=== PATIENT | female | born 1930 | race Caucasian/White ===

== ENCOUNTER 2016-10-06 07:48 | Day surgery (SDC) | payer OTHER ==
[~2016-10-06] VITALS: Ht 157.5 cm; Wt 83.6 kg
[2016-10-06 08:09] VITALS: BP 154/80; PULSE 123; RESP 20; TEMP 98; O2SAT 94
[2016-10-06] MEDS ORDERED: CHOL1TAB42 PO (08:13)
[2016-10-06] MEDS ORDERED: LOVA40TA PO (08:13)
[2016-10-06] MEDS ORDERED: ASPI81CH7 CHEW (08:13)
[2016-10-06] MEDS ORDERED: B-122000 PO (08:13)
[2016-10-06] MEDS ORDERED: FERR325C PO (08:13)
[2016-10-06] MEDS ORDERED: FURO40TA PO (08:13)
[2016-10-06] MEDS ORDERED: OMEG12007 PO (08:13)
[2016-10-06] MEDS ORDERED: LEVO25TA4 PO (08:13)
[2016-10-06 08:29] LABS: AUTOMATED NEUTROPHIL # 2.9 TH/MM3 (1.8-7.7); BASOPHIL # 0.1 TH/MM3 (0-0.2); BASOPHIL % 0.9 % (0.0-2.0); EOSINOPHIL # 0.2 TH/MM3 (0-0.4); EOSINOPHIL % 2.6 % (0.0-4.0); HEMATOCRIT 29.9 % (35.0-46.0); HEMO FLAGS DIFF FINAL; LYMPH % 40.5 % (9.0-44.0); LYMPHOCYTE # 2.7 TH/MM3 (1.0-4.8); MEAN CELL VOLUME 102.6 FL (80.0-100.0); MEAN CORPUSCULAR HEMOGLOBIN 35.6 PG (27.0-34.0); MEAN CORPUSCULAR HGB CONC 34.7 % (32.0-36.0); MONO % 11.3 % (0.0-8.0); NEUT % 44.7 % (16.0-70.0); PLATELET COUNT 280 TH/MM3 (150-450); RED BLOOD COUNT 2.91 MIL/MM3 (4.00-5.30); RED CELL DISTRIBUTION WIDTH 14.6 % (11.6-17.2); WHITE BLOOD COUNT 6.6 TH/MM3 (4.0-11.0)
[2016-10-06] MEDS ORDERED: SODIUM CHLOR 0.9% 1000 ML IV SCH (09:15)
[2016-10-06] MEDS ORDERED: fentaNYL CITRATE 250 MCG/5 ML AMP ONE (09:43)
[2016-10-06] MEDS ORDERED: MIDAZOLAM HCL 5 MG/5 ML VIAL ONE (09:43)
[2016-10-06] MEDS ORDERED: LIDOCAINE HCL 1% 20 ML VIAL ONE (09:45)
--- NOTE | 2016-10-06 10:36 | PD.RAD ---
Post Procedure Progress Note Pre Procedure Diagnosis: (1) Monoclonal gammopathy Post Procedure Diagnosis: (1) Monoclonal gammopathy Procedure Date: Oct 06, 2016 Supervising Radiologist: Manpreet Plata Anesthesia: Local, Conscious Sedation Plan of Activity Patient to Unit: ROPU Patient Condition: Fair Additional Comments: Pt post bone marrow biopsy Pt tolerated procedure well. Full dictated report to follow See PACS Report for procedural detail/treatment Manpreet Plata MD Oct 06, 2016 10:36
[2016-10-06 10:50] VITALS: BP 123/71; PULSE 103; RESP 18; TEMP 97.2; O2SAT 94
[2016-10-06 11:05] VITALS: BP 117/56; PULSE 102; RESP 18; O2SAT 96
[2016-10-06 11:35] VITALS: BP 100/53; PULSE 95; RESP 18; O2SAT 97
--- NOTE | 2016-10-06 11:41 | RADRPT ---
EXAM DATE/TIME: 10/06/2016 10:07 [facility] COMPARISON: No previous studies available for comparison. INDICATIONS : Monoclonal gammopathy SEDATION TIME: 15 minutes BIOPSY SITE: Left ilium MEDICATION(S): 1.) 2 mg midazolam (Versed) IV 2.) 100 mcg fentanyl (Sublimaze) IV DEVICE(S): 1.) 12 gauge On-Control needle MEDICAL HISTORY : Hypertension. Anemia SURGICAL HISTORY : Appendectomy. ENCOUNTER: Initial ACUITY: 1 day PAIN SCORE: 0/10 LOCATION: A total of one core specimen(s) were obtained and sent to the laboratory for pathologic evaluation. PROCEDURE: 1. CT guided bone marrow biopsy. 2. Conscious sedation with continuous EKG and oximetry monitoring. 3. EKG and oximetry remained stable throughout the procedure. Prior to the procedure informed consent was obtained. Any appropriate prior imaging studies were rev iewed. Using automated exposure control and adjustment of the mA and/or kV according to patient size , radiation dose was kept as low as reasonably achievable to obtain optimal diagnostic quality images . The site was prepped in a sterile fashion. Full sterile technique was used, including cap, mask, [place] ri[place] gloves and gown and a large sterile sheet. Hand hygiene and 2% chlorhexidine and/or betadine/al cohol prep was utilized per protocol for cutaneous antisepsis. The skin and subcutaneous tissues wer e infiltrated with local anesthetic solution. With CT guidance the previously identified target was localized. Biopsy was performed using the presc ribed needle as above. Following biopsy marrow aspiration was performed with repeat puncture. Adequa te hemostasis was obtained with compression at the puncture site. Follow-up CT scan reveals no hemorrhage. Conscious sedation was performed with the prescribed dosages and duration as above in the presence of an independent trained radiology nurse to assist in the monitoring of the patient. EKG and oximetry remained stable throughout the procedure. The patient tolerated the procedure well and there were no complications. The patient was sent to Radiology Outpatient Unit in stable condition. CONCLUSION: 1. Uncomplicated CT guided bone marrow aspirate. 2. Uncomplicated CT guided bone marrow biopsy. Manpreet Plata MD on October 06, 2016 at 11:38 Board Certified Radiologist. This report was verified electronically.
[2016-10-06 12:05] VITALS: BP 104/45; PULSE 91; RESP 18; O2SAT 91
[2016-10-06 12:16] LABS: BONE MARROW PROCESSING COMPLETE; IRON STAIN DONE; JENNER GIEMSA STAIN DONE
[2016-10-06 12:35] VITALS: BP 104/57; PULSE 86; RESP 16; O2SAT 93
== END 2016-10-06 13:35 | disposition home or self-care (01) ==
LOC: HRAD 07:48 → HRIP 07:57 → HRAD 13:35
PROVIDERS: ATTEND Internal Medicine
DX: D47.2 Monoclonal gammopathy (principal); I10 Essential (primary) hypertension; D64.9 Anemia, unspecified
CPT/HCPCS: 38220; 38221; 77012; 85025; 85060; 85097; 88184; 88185; 88237; 88264; 88280; 88305; 88311; 88313; 99152; C1830; G0364; J2250; J3010; J7030

== ENCOUNTER 2016-11-11 15:53 | Emergency (ER) | payer OTHER ==
[~2016-11-11 15:53] MED LIST: ASPI81CH7 CHEW; B-122000 PO; CHOL1TAB42 PO; FERR325C PO; FURO40TA PO; LEVO25TA4 PO; LOVA40TA PO; OMEG12007 PO
[2016-11-11 15:56] VITALS: BP 160/72; PULSE 118; RESP 24; TEMP 100.2; O2SAT 94
--- NOTE | 2016-11-11 16:54 | RADRPT ---
EXAM DATE/TIME: 11/11/2016 16:38 [facility] COMPARISON: No previous studies available for comparison. INDICATIONS : Fever. MEDICAL HISTORY : Hypertension. Anemia. SURGICAL HISTORY : Appendectomy. ENCOUNTER: Initial ACUITY: 1 day PAIN SCORE: Non-responsive. LOCATION: Bilateral chest FINDINGS: A single portable frontal view of the chest shows a lingular opacity which obscures the cardiac apex. Right lung is clear. No effusions. Heart is normal in size. Mild scoliotic curvature. CONCLUSION: Lingular atelectasis versus infiltrate. Amanuel Garcia Jr., MD on November 11, 2016 at 16:51 Board Certified Radiologist. This report was verified electronically.
[2016-11-11] MEDS ORDERED: DEXA4TAB PO (17:10)
[2016-11-11] MEDS ORDERED: ACYC400T PO (17:10)
[2016-11-11 17:11] VITALS: O2SAT 95
[2016-11-11] MEDS ORDERED: VANCOMYCIN INJ 1,000 MG in SODIUM CHLOR 0.9% 250 ML INJ 250 ML IV ONE (17:30)
[2016-11-11] MEDS ORDERED: cefTRIAXone INJ 2,000 MG in SODIUM CHLORIDE 0.9% INJ 100 ML IV ONE (17:30)
[2016-11-11] MEDS ORDERED: PROCHLORPERAZINE INJ 10 MG/2 ML VIAL IV PUSH ONE (17:30)
[2016-11-11] MEDS ORDERED: SODIUM CHLOR 0.9% 1000 ML INJ 1,000 ML IV ONE (17:30)
[2016-11-11] MEDS ORDERED: diphenhydrAMINE HCL 50 MG/ML VIAL IV PUSH ONE (17:30)
[2016-11-11 17:32] LABS: AUTOMATED NEUTROPHIL # 3.9 TH/MM3 (1.8-7.7); BASOPHIL % 0.4 % (0.0-2.0); EOSINOPHIL # 0.1 TH/MM3 (0-0.4); HEMATOCRIT 28.2 % (35.0-46.0); LYMPH % 14.4 % (9.0-44.0); LYMPHOCYTE # 0.7 TH/MM3 (1.0-4.8); MEAN CELL VOLUME 104.8 FL (80.0-100.0); MEAN CORPUSCULAR HEMOGLOBIN 36.6 PG (27.0-34.0); MEAN CORPUSCULAR HGB CONC 34.9 % (32.0-36.0); NEUT % 80.2 % (16.0-70.0); PLATELET COUNT 212 TH/MM3 (150-450); RED BLOOD COUNT 2.69 MIL/MM3 (4.00-5.30); RED CELL DISTRIBUTION WIDTH 14.9 % (11.6-17.2); WHITE BLOOD COUNT 4.8 TH/MM3 (4.0-11.0)
[2016-11-11 17:36] LABS: HEMO FLAGS AUTO DIFF
--- NOTE | 2016-11-11 17:41 | PD ---
Data Data Last Documented VS Vital Signs Date Time Temp Pulse Resp B/P Pulse Ox O2 Delivery O2 Flow Rate FiO2 11/11/16 19:19 99.5 99 18 146/66 97 11/11/16 15:56 Room Air Orders Lactic Acid (11/11/16 16:15) Complete Blood Count With Diff (11/11/16 16:15) Urinalysis - C+S If Indicated (11/11/16 16:15) Chest, Single Ap (11/11/16 ) Blood Culture (11/11/16 16:20) Comprehensive Metabolic Panel (11/11/16 17:06) Magnesium (Mg) (11/11/16 17:06) Iv Access Insert/Monitor (11/11/16 17:07) Oximetry (11/11/16 17:07) Blood Glucose (11/11/16 17:07) Ecg Monitoring (11/11/16 17:07) Diphenhydramine Inj (Benadryl Inj) (11/11/16 17:30) Prochlorperazine Inj (Compazine Inj) (11/11/16 17:30) Ceftriaxone Inj (Rocephin Inj) (11/11/16 17:30) Vancomycin Inj (Vancomycin Inj) (11/11/16 17:30) Sodium Chlor 0.9% 1000 Ml Inj (Ns 1000 M (11/11/16 17:30) Lipase (11/11/16 18:21) Gamma Gt (Ggt) (11/11/16 18:24) Acetaminophen (Tylenol) (11/11/16 19:30) Cath For Specimen (11/11/16 19:46) Magnesium Oxide (Mag-Ox) (11/11/16 20:45) Labs Laboratory Tests Test 11/11/16 11/11/16 11/11/16 16:15 16:50 19:55 Gamma Glutamyl Transpeptidase 29 U/L White Blood Count 4.8 TH/MM3 Red Blood Count 2.69 MIL/MM3 Hemoglobin 9.9 GM/DL Hematocrit 28.2 % Mean Corpuscular Volume 104.8 FL Mean Corpuscular Hemoglobin 36.6 PG Mean Corpuscular Hemoglobin 34.9 % Concent Red Cell Distribution Width 14.9 % Platelet Count 212 TH/MM3 Mean Platelet Volume 7.6 FL Neutrophils (%) (Auto) 80.2 % Lymphocytes (%) (Auto) 14.4 % Monocytes (%) (Auto) 2.0 % Eosinophils (%) (Auto) 3.0 % Basophils (%) (Auto) 0.4 % Neutrophils # (Auto) 3.9 TH/MM3 Lymphocytes # (Auto) 0.7 TH/MM3 Monocytes # (Auto) 0.1 TH/MM3 Eosinophils # (Auto) 0.1 TH/MM3 Basophils # (Auto) 0.0 TH/MM3 CBC Comment AUTO DIFF Differential Total Cells 100 Counted Neutrophils % (Manual) 60 % Band Neutrophils % 12 % Lymphocytes % 13 % Eosinophils % 6 % Basophils % 1 % Neutrophils # (Manual) 3.8 TH/MM3 Metamyelocytes 4 % Myelocytes 3 % Promyelocytes 1 % Nucleated Red Blood Cells 1 /100 WBC Differential Comment FINAL DIFF MANUAL Platelet Estimate NORMAL Platelet Morphology Comment NORMAL Red Cell Morphology Comment NORMAL Sodium Level 130 MEQ/L Potassium Level 3.5 MEQ/L Chloride Level 99 MEQ/L Carbon Dioxide Level 24.9 MEQ/L Anion Gap 6 MEQ/L Blood Urea Nitrogen 21 MG/DL Creatinine 0.96 MG/DL Estimat Glomerular Filtration 55 ML/MIN Rate Random Glucose 100 MG/DL Lactic Acid Level 0.9 mmol/L Calcium Level 9.0 MG/DL Magnesium Level 1.4 MG/DL Total Bilirubin 0.2 MG/DL Aspartate Amino Transf 1173 U/L (AST/SGOT) Alanine Aminotransferase 46 U/L (ALT/SGPT) Alkaline Phosphatase 43 U/L Total Protein 10.5 GM/DL Albumin 2.5 GM/DL Lipase 117 U/L Urine Color YELLOW Urine Turbidity HAZY Urine pH 5.5 Urine Specific [place] 1.014 Urine Protein 30 mg/dL Urine Glucose (UA) NEG mg/dL Urine Ketones NEG mg/dL Urine Occult Blood MOD Urine Nitrite NEG Urine Bilirubin NEG Urine Urobilinogen LESS THAN 2.0 MG/DL Urine Leukocyte Esterase NEG Urine RBC 8 /hpf Urine WBC 1 /hpf Urine Squamous Epithelial 1 /hpf Cells Urine Amorphous Sediment RARE Urine Bacteria RARE /hpf Urine Hyaline Casts 1 /lpf Microscopic Urinalysis Comment CULT NOT INDICATED MDM Supervised Visit with [facility]: Yes Narrative Course I, Dr. Stein, have reviewed the advance practice practitioner's documentation and am in agreement, met with the patient face to face, made the diagnosis, and the medical decision making was done by me. *My assessment and Findings: Patient seen and examined by me, appears quite well. Patient temperature of 100.2 in the emergency department, mildly tachycardic 118, white blood cell count normal. Patient has perhaps some very minimal lingular infiltrate however I reviewed the films and very under well. Ele Leblanc to discuss the patient with oncology [employer] for recommendations, I think at this point the patient may be able to go home and follow-up as an outpatient if close interim follow-up can be arranged unless the oncologist has other recommendations. Scripts Magnesium Oxide 400 Mg [id number] Mg PO BID 7 Days Ref 0 Prov:Ele Leblanc 11/11/16 Tramadol 50 Mg Tab50 Mg PO Q8H PRN (PAIN) #10 TAB Ref 0 Prov:Makenna Stallworth MD 11/11/16 Disposition: 01 DISCHARGE HOME Condition: Stable Vinay Stein MD Nov 11, 2016 17:41
--- NOTE | 2016-11-11 17:56 | PD ---
HPI Chief Complaint: Fever Time Seen by Provider: 17:00 Travel History International Travel<30 days: No Contact w/Intl Traveler<30days: No Traveled to known affect area: No History of Present Illness HPI Patient is an 86 year-old female presented to emergency room for evaluation of headache and a fever. Patient states the headache started when she woke up this morning, the fever also started today. She states that she had chemotherapy yesterday. She denies any chest pain, shortness of breath, nausea , vomiting, visual changes. She reports a history of migraines, headache is consistent with headaches she has had in the past. PFSH Past Medical History Anemia: Yes Arthritis: Yes Anxiety: Yes Cancer: Yes (multiple myeloma) Chemotherapy: Yes (velcade) Chest Pain: Yes Diabetes: Yes (diet controlled) Patient Takes Glucophage: No Endocrine: No Gout: Yes Genitourinary: No Hepatitis: No Hypertension: Yes Psychiatric: No Reproductive: No Pneumonia: Yes Thyroid Disease: Yes (hypothyroid) Past Surgical History AICD: No Appendectomy: Yes Cardiac Surgery: No Ear Surgery: No Endocrine Surgery: No Eye Surgery: No Gynecologic Surgery: Yes (tubal ligation) Joint Replacement: No Oral Surgery: No Pacemaker: No Thoracic Surgery: No Social History Alcohol Use: No Tobacco Use: No Substance Use: No Allergies-Medications (Allergen,Severity, Reaction): Coded Allergies: No Known Allergies (Unverified , 10/06/16) Reported Meds & Prescriptions Reported Meds & Active Scripts Active Reported Acyclovir 400 Mg Tab 400 Mg PO DAILY Dexamethasone 4 Mg Tab 4 Mg PO DIRECTED Iron (Ferrous Sulfate) 325 Mg Capsule.er 325 Mg PO DAILY Fish Oil 1,200 mg Softgel ([place]-3S/Dha/Epa/Fish Oil) 1 Each Capsule 1,200 Mg PO DAILY Vitamin D-3 (Cholecalciferol) 2,000 Unit Tab 2,000 Mg PO DAILY B-12 (Cyanocobalamin) 2,000 Mcg Tab 2,000 Mcg PO DAILY Aspirin Children's (Aspirin) 81 Mg Chew 81 Mg CHEW DAILY Lovastatin 40 Mg Tab 40 Mg PO DAILY Levothyroxine (Levothyroxine Sodium) 25 Mcg Tab 25 Mcg PO DAILY Furosemide 40 Mg Tab 40 Mg PO DAILY Review of Systems Except as stated in HPI: all other systems reviewed are Neg General / Constitutional: Positive: Fever, Chills Eyes: No: Blurred Vision, Visual changes HENT: Positive: Headaches, No: Lightheadedness Cardiovascular: No: Chest Pain or Discomfort Respiratory: No: Shortness of Breath Gastrointestinal: No: Nausea, Abdominal Pain Genitourinary: No: Dysuria Musculoskeletal: No: Myalgias Neurologic: No: Weakness, Dizziness, Syncope Physical Exam Narrative GENERAL: Overweight, well-developed, alert elderly female. Resting in no acute distress. SKIN: Warm and dry. HEAD: Atraumatic. Normocephalic. EYES: Pupils equal and round. No scleral icterus. No injection or drainage. ENT: No nasal bleeding or discharge. Mucous membranes pink and moist. NECK: Trachea midline. No JVD. CARDIOVASCULAR: tachycardic RESPIRATORY: No accessory muscle use. Breath sounds equal bilaterally. Diminished in bases GASTROINTESTINAL: Abdomen soft, non-tender, nondistended. Hepatic and splenic margins not palpable. MUSCULOSKELETAL: Extremities without clubbing, cyanosis, or edema. No obvious deformities. NEUROLOGICAL: Awake and alert. No obvious cranial nerve deficits. Motor grossly within normal limits. Five out of 5 muscle strength in the arms and legs. Normal speech. PSYCHIATRIC: Appropriate mood and affect; insight and judgment normal. Data Data Last Documented VS Vital Signs Date Time Temp Pulse Resp B/P Pulse Ox O2 Delivery O2 Flow Rate FiO2 11/11/16 19:19 99.5 99 18 146/66 97 11/11/16 15:56 Room Air Orders Lactic Acid (11/11/16 16:15) Complete Blood Count With Diff (11/11/16 16:15) Urinalysis - C+S If Indicated (11/11/16 16:15) Chest, Single Ap (11/11/16 ) Blood Culture (11/11/16 16:20) Comprehensive Metabolic Panel (11/11/16 17:06) Magnesium (Mg) (11/11/16 17:06) Blood Culture (11/11/16 17:06) Iv Access Insert/Monitor (11/11/16 17:07) Oximetry (11/11/16 17:07) Blood Glucose (11/11/16 17:07) Ecg Monitoring (11/11/16 17:07) Diphenhydramine Inj (Benadryl Inj) (11/11/16 17:30) Prochlorperazine Inj (Compazine Inj) (11/11/16 17:30) Ceftriaxone Inj (Rocephin Inj) (11/11/16 17:30) Vancomycin Inj (Vancomycin Inj) (11/11/16 17:30) Sodium Chlor 0.9% 1000 Ml Inj (Ns 1000 M (11/11/16 17:30) Lipase (11/11/16 18:21) Gamma Gt (Ggt) (11/11/16 18:24) Acetaminophen (Tylenol) (11/11/16 19:30) Cath For Specimen (11/11/16 19:46) Labs Laboratory Tests Test 11/11/16 11/11/16 11/11/16 16:15 16:50 19:55 Gamma Glutamyl Transpeptidase 29 U/L White Blood Count 4.8 TH/MM3 Red Blood Count 2.69 MIL/MM3 Hemoglobin 9.9 GM/DL Hematocrit 28.2 % Mean Corpuscular Volume 104.8 FL Mean Corpuscular Hemoglobin 36.6 PG Mean Corpuscular Hemoglobin 34.9 % Concent Red Cell Distribution Width 14.9 % Platelet Count 212 TH/MM3 Mean Platelet Volume 7.6 FL Neutrophils (%) (Auto) 80.2 % Lymphocytes (%) (Auto) 14.4 % Monocytes (%) (Auto) 2.0 % Eosinophils (%) (Auto) 3.0 % Basophils (%) (Auto) 0.4 % Neutrophils # (Auto) 3.9 TH/MM3 Lymphocytes # (Auto) 0.7 TH/MM3 Monocytes # (Auto) 0.1 TH/MM3 Eosinophils # (Auto) 0.1 TH/MM3 Basophils # (Auto) 0.0 TH/MM3 CBC Comment AUTO DIFF Differential Total Cells 100 Counted Neutrophils % (Manual) 60 % Band Neutrophils % 12 % Lymphocytes % 13 % Eosinophils % 6 % Basophils % 1 % Neutrophils # (Manual) 3.8 TH/MM3 Metamyelocytes 4 % Myelocytes 3 % Promyelocytes 1 % Nucleated Red Blood Cells 1 /100 WBC Differential Comment FINAL DIFF MANUAL Platelet Estimate NORMAL Platelet Morphology Comment NORMAL Red Cell Morphology Comment NORMAL Sodium Level 130 MEQ/L Potassium Level 3.5 MEQ/L Chloride Level 99 MEQ/L Carbon Dioxide Level 24.9 MEQ/L Anion Gap 6 MEQ/L Blood Urea Nitrogen 21 MG/DL Creatinine 0.96 MG/DL Estimat Glomerular Filtration 55 ML/MIN Rate Random Glucose 100 MG/DL Lactic Acid Level 0.9 mmol/L Calcium Level 9.0 MG/DL Magnesium Level 1.4 MG/DL Total Bilirubin 0.2 MG/DL Aspartate Amino Transf 1173 U/L (AST/SGOT) Alanine Aminotransferase 46 U/L (ALT/SGPT) Alkaline Phosphatase 43 U/L Total Protein 10.5 GM/DL Albumin 2.5 GM/DL Lipase 117 U/L Urine Color YELLOW Urine Turbidity HAZY Urine pH 5.5 Urine Specific [place] 1.014 Urine Protein 30 mg/dL Urine Glucose (UA) NEG mg/dL Urine Ketones NEG mg/dL Urine Occult Blood MOD Urine Nitrite NEG Urine Bilirubin NEG Urine Urobilinogen LESS THAN 2.0 MG/DL Urine Leukocyte Esterase NEG Urine RBC 8 /hpf Urine WBC 1 /hpf Urine Squamous Epithelial 1 /hpf Cells Urine Amorphous Sediment RARE Urine Bacteria RARE /hpf Urine Hyaline Casts 1 /lpf Microscopic Urinalysis Comment CULT NOT INDICATED MDM Medical Decision Making Medical Screen Exam Complete: Yes Emergency Medical Condition: Yes Medical Record Reviewed: Yes Interpretation(s) Vital Signs Date Time Temp Pulse Resp B/P Pulse Ox O2 Delivery O2 Flow Rate FiO2 11/11/16 17:11 95 11/11/16 15:56 100.2 118 24 160/72 94 Room Air Differential Diagnosis Sepsis versus medication side effect versus neutropenia versus UTI versus viral syndrome versus other Narrative Course Patient is an 86-year-old female presenting to emergency department for evaluation of headache and fevers. Patient was started on Velcade yesterday. Patient is neurologically intact. No meningeal signs. She had a low-grade temp on arrival, she reports a headache upon awakening this morning. She reports the headache is similar to headache she's had in the past she had not taken anything to alleviate the pain. Family states that she does not like to take pills. Patient denies any visual changes, chest pain shortness of breath, nausea or vomiting. Labs and imaging ordered and pending. CBC is stable compared to prior CHEM: AST 1173, magnesium 1.4, or replacement given Urinalysis is unremarkable Lactic acid 0.9, lipase 117. Patient's fever resolved prior to giving acetaminophen. Discussed findings with Dr. Solis who was on-call for Dr. Tiwari patient's oncologist. She advised that they will be at the [facility] tomorrow, patient can follow-up in the morning. Discussed this with patient's family. She will be given a short course of pain medicine, she was advised to take acetaminophen or ibuprofen as needed and as directed for headache pain. She was advised to return to emergency department immediately for any new or worsening symptoms. Patient and family verbalized understanding of these instructions. Patient is stable for discharge. Diagnosis Primary Impression: Intermittent fever of unknown origin Additional Impressions: Headache Qualified Code: R51 - Nonintractable headache, unspecified chronicity pattern , unspecified headache type Abnormal liver enzymes Hypomagnesemia Referrals: Austin Moura MD 1 day Patient Instructions: Acute Headache (ED), Fever in Adults (GEN), General Instructions, Moderate Sedation in Children (ED) Additional Instructions: Follow-up with your oncologist in 1 day Return to emergency department immediately for any new or worsening symptoms Maintain adequate fluid intake Take medications as directed and as needed for pain Med/Other Pt SpecificInfo: Prescription(s) given Scripts Magnesium Oxide 400 Mg [id number] Mg PO BID 7 Days Ref 0 Prov:Ele Leblanc 11/11/16 Tramadol 50 Mg Tab50 Mg PO Q8H PRN (PAIN) #10 TAB Ref 0 Prov:Makenna Stallworth MD 11/11/16 Disposition: 01 DISCHARGE HOME Condition: Stable Ele Leblanc Nov 11, 2016 17:56
[2016-11-11 17:58] LABS: ALKALINE PHOSPHATASE 43 U/L (45-117); ALT (GPT) 46 U/L (10-53); ANION GAP 6 MEQ/L (5-15); AST (GOT) 1173 U/L (15-37); BICARBONATE 24.9 MEQ/L (21.0-32.0); BLOOD UREA NITROGEN 21 MG/DL (7-18); CHLORIDE 99 MEQ/L (98-107); GLOMERULAR FILTRATION RATE 55 ML/MIN (>89); MAGNESIUM 1.4 MG/DL (1.5-2.5); POTASSIUM 3.5 MEQ/L (3.5-5.1); SODIUM (NA) 130 MEQ/L (136-145); TOTAL BILIRUBIN ADULT 0.2 MG/DL (0.2-1.0)
[2016-11-11 18:41] LABS: BANDS 12 % (0-6); BASOPHILS 1 % (0-2); CORRECTED NUCLEATED RBC 1 /100 WBC (0-0); EOSINOPHILS 6 % (0-4); METAMYELOCYTES 4 % (0-1); MYELOCYTES 3 % (0-0); NEUTROPHIL # MANUAL DIFF 3.8 TH/MM3 (1.8-7.7); POLYS (SEG NEUTROPHILS) 60 % (16-70); PROMYELOCYTES 1 % (0-0); SCAN/DIFF FINAL DIFF MANUAL; WBC DIFF SAMPLE 100
[2016-11-11 18:42] LABS: PLATELET ESTIMATE SMEAR NORMAL (NORMAL); PLATELET MORPHOLOGY NORMAL (NORMAL)
[2016-11-11 19:19] VITALS: BP 146/66; PULSE 99; RESP 18; TEMP 99.5; O2SAT 97
[2016-11-11] MEDS ORDERED: ACETAMINOPHEN 325 MG TAB PO ONE (19:30)
[2016-11-11 20:17] LABS: BACTERIA, URINE RARE /hpf; BLOOD, URINE MOD (NEG); COMMENT (UR) CULT NOT INDICATED; CULTURE IF INDICATED CULT NOT INDICATED; GLUCOSE,URINE NEG (NEG); HYALINE CAST, URINE 1 /lpf (RARE); KETONE, URINE NEG (NEG); NITRITE,URINE NEG (NEG); PH, URINE 5.5 (5.0-8.5); SQUAMOUS EPITHELIAL CELL URINE 1 /hpf (0-5); URINE COLOR YELLOW (YELLW/STRAW)
[2016-11-11] MEDS ORDERED: TRAM50TA PO ×2 (20:43→20:54)
[2016-11-11] MEDS ORDERED: MAGNESIUM OXIDE 400 MG TAB PO ONE (20:45)
[2016-11-11] MEDS ORDERED: MAGN400T2 PO (20:56)
== END 2016-11-11 21:18 | disposition home or self-care (01) ==
LOC: NEPE 15:53
DX: R50.9 Fever, unspecified (principal); R51 Headache; R94.5 Abnormal results of liver function studies; E83.42 Hypomagnesemia; R00.0 Tachycardia, unspecified; D64.9 Anemia, unspecified; E11.9 Type 2 diabetes mellitus without complications; I10 Essential (primary) hypertension; M10.9 Gout, unspecified
CPT/HCPCS: 71010; 80053; 81001; 82977; 83605; 83690; 83735; 85007; 85027; 87040; 96365; 96366; 96368; 96375; 99284; J0696; J0780; J1200; J3370; J7030; J7050; P9612

== ENCOUNTER 2016-11-16 06:39 | Day surgery (SDC) | payer OTHER ==
[~2016-11-16] VITALS: Ht 157.5 cm; Wt 82.7 kg
[~2016-11-16 06:39] MED LIST changes: +ACYC400T PO; +DEXA4TAB PO; +MAGN400T2 PO; +TRAM50TA PO
[2016-11-16 06:58] VITALS: BP 112/56; PULSE 102; RESP 20; TEMP 97.9; O2SAT 96
[2016-11-16] MEDS: SODIUM CHLORIDE 0.9% 1000 ML IV SCH ×2 (07:00→07:37)
[2016-11-16] MEDS ORDERED: OXYC1CAP PO (07:15)
[2016-11-16] MEDS: POVIDONE IODINE 5% (ANTISEPSIS KIT) 4 APPLICATIONS EACH NARE SCH ×2 (07:36→07:38)
[2016-11-16] MEDS: CHLORHEXIDINE GLUCONATE 2 % 1 PACK (2 CLOTHS) TOPICAL SCH ×2 (07:37→07:38)
[2016-11-16] MEDS: ceFAZolin 2 GM PREMIX 50 ML - implanted port/tunneled catheter insertion IV SCH ×3 (07:37→09:23)
[2016-11-16] MEDS: VANCOMYCIN 1000 MG/NS 250 ML - implanted port/tunneled catheter IV SCH ×6 (07:37→09:23)
[2016-11-16] MEDS ORDERED: fentaNYL CITRATE 250 MCG/5 ML AMP ONE (07:38)
[2016-11-16] MEDS ORDERED: MIDAZOLAM HCL 5 MG/5 ML VIAL ONE (07:38)
[2016-11-16] MEDS ORDERED: LIDOCAINE 1%/EPINEPHrine 1:100,000 SOLN 20 ML VIAL ONE (08:00)
[2016-11-16 09:05] VITALS: BP 100/48; PULSE 93; RESP 16; TEMP 97.5; O2SAT 96
[2016-11-16] MEDS ORDERED: SODIUM CHLORIDE 0.9% FLUSH 10 ML FLUSH IVF PRN (09:15)
--- NOTE | 2016-11-16 09:17 | PD.RAD ---
Post Procedure Progress Note Pre Procedure Diagnosis: (1) Monoclonal gammopathy Post Procedure Diagnosis: (1) Monoclonal gammopathy Procedure Date: Nov 16, 2016 Supervising Radiologist: Amanuel Garcia JR Proceduralist/Assist: Cookie Cao, RT(R)(CV), Kristin Lee RT(R)() Anesthesia: Conscious Sedation Plan of Activity Patient to Unit: ROPU Patient Condition: Good See PACS Report for procedural detail/treatment Central Venous Access Device Procedure 1 Right Internal Jugular Infusaport Placement single lumen Thai: 8 Findings: Port in good position and functions well. OK to use. Plan F/U with IR or a physician in 10-14 days for a site check Jr. Jose,Amanuel Peoples MD Nov 16, 2016 09:17
[2016-11-16 09:20] VITALS: BP 108/64; PULSE 83; RESP 17; O2SAT 96
[2016-11-16 09:50] VITALS: BP 112/57; PULSE 96; RESP 18; O2SAT 97
[2016-11-16 10:20] VITALS: BP 93/47; PULSE 85; RESP 17; O2SAT 96
[2016-11-16 11:00] VITALS: BP 109/68; PULSE 84; RESP 18; O2SAT 97
--- NOTE | 2016-11-16 11:37 | RADRPT ---
EXAM DATE/TIME: 11/16/2016 08:00 [facility] COMPARISON: No previous studies available for comparison. INDICATIONS : Patient with history of multiple myeloma in need of [id number] placement. MEDICAL HISTORY : HTN, Anemia, Gout, Hypothyroidism, Osteoporosis, MT, Cardiomegaly, Diabetes, Dysphagia, CKD SURGICAL HISTORY : Appendectomy, Bone marrow biopsy ENCOUNTER: Initial ACUITY: 1 month PAIN SCORE: 0/10 FLUORO TIME: 0.4 minutes IMAGE SERIES: 0 SEDATION TIME: 30 minutes ACCESS: Right internal jugular vein SEDATION: 1.) 3 mg midazolam (Versed) IV 2.) 150 mcg fentanyl (Sublimaze) IV Prophylactic antibiotics were administered with appropriate pre-procedure timing. Vancomycin within 2 hours of procedure, Ancef (or alternative) within 1 hour of procedure. DEVICE: 1. 8 [place] single lumen Smart power port with vortex PROCEDURE : 1. Continuous pulse oximetry and EKG monitoring. 2. Intravenous conscious sedation. 3. Ultrasound guidance for venous access. 4. Fluoroscopic guided implantable central venous port placement. The patient was placed supine. The neck was prepped in sterile fashion. Full sterile technique was u sed, including cap, mask, sterile gloves and gown, and a large sterile sheet. Hand hygiene and 2% ch lorhexidine Betadine was utilized per protocol for cutaneous antisepsis with appropriate dry time for site. The skin and subcutaneous tissues were infiltrated with local anesthetic solution. Under direct ultrasound guidance, central venous access was accomplished in the targeted vessel. The ultrasound images depicting access guidance were stored and saved to PACS for permanent record. A s ubcutaneous pocket was created using blunt dissection. The port was introduced to the pocket. The c atheter tubing was fed through a subcutaneous tunnel to the venotomy site. The catheter tubing was c ut to a suitable length and then was introduced through a valved Peel-Away sheath and positioned with catheter tubing tip at the cavo-atrial junction level. The pocket incision was closed with subcutic ular Vicryl suture. Steri-Strips were applied. The port was flushed and locked with heparin solutio n per protocol. Sterile dressing was applied to the site. The patient tolerated the procedure well. Conscious sedation was performed with the prescribed dosages and duration as above in the presence of an independent trained radiology nurse to assist in the monitoring of the patient. EKG and oximetry remained stable throughout the procedure. The patient tolerated the procedure well and there were no complications. The patient was sent to post anesthesia recovery in stable condition. CONCLUSION: Uncomplicated ultrasound and fluoroscopic guided implanted central venous port catheter placement as described in detail above. An 8 Polish Power port was placed. Amanuel Garcia Jr., MD on November 16, 2016 at 11:35 Board Certified Radiologist. This report was verified electronically.
== END 2016-11-16 11:09 | disposition home or self-care (01) ==
LOC: HROP 06:39 → HRIP 06:46 → HROP 11:09
PROVIDERS: ATTEND Internal Medicine
DX: C90.00 Multiple myeloma not having achieved remission (principal)
CPT/HCPCS: 36561; 76937; 77001; 99152; 99153; C1788; J0690; J1642; J2250; J3010; J3370; J7030; J7050

== ENCOUNTER 2017-09-03 08:56 | Day surgery (SDC) | payer OTHER ==
[~2017-09-03] VITALS: Ht 157.5 cm; Wt 88.2 kg
[~2017-09-03 08:56] MED LIST changes: +OXYC1CAP PO; -TRAM50TA PO
[2017-09-03 09:16] VITALS: BP 166/84; PULSE 96; RESP 18; TEMP 97.9; O2SAT 92
[2017-09-03] MEDS ORDERED: IMPLANTED VASCULAR ACCESS DEVICE/PORT - SODIUM CHLORIDE FLUSH PRN IV FLUSH (09:30)
[2017-09-03] MEDS ORDERED: SODIUM CHLOR 0.9% 1000 ML IV SCH (09:30)
[2017-09-03] MEDS ORDERED: IMPLANTED VASCULAR ACCESS DEVICE/PORT - SODIUM CHLORIDE FLUSH IV FLUSH SCH (09:30)
[2017-09-03] MEDS ORDERED: fentaNYL CITRATE 250 MCG/5 ML AMP ONE (09:37)
[2017-09-03] MEDS ORDERED: MIDAZOLAM HCL 5 MG/5 ML VIAL ONE (09:37)
[2017-09-03 09:52] LABS: BASOPHIL % 0.5 % (0.0-2.0); EOSINOPHIL # 0.1 TH/MM3 (0-0.4); EOSINOPHIL % 1.1 % (0.0-4.0); HEMATOCRIT 38.1 % (35.0-46.0); HEMOGLOBIN 12.7 GM/DL (11.6-15.3); LYMPH % 23.1 % (9.0-44.0); LYMPHOCYTE # 1.8 TH/MM3 (1.0-4.8); MEAN CELL VOLUME 92.5 FL (80.0-100.0); MEAN CORPUSCULAR HGB CONC 33.5 % (32.0-36.0); MEAN PLATELET VOLUME 8.1 FL (7.0-11.0); MONO % 10.4 % (0.0-8.0); MONOCYTE # 0.8 TH/MM3 (0-0.9); NEUT % 64.9 % (16.0-70.0); PLATELET COUNT 219 TH/MM3 (150-450); RED BLOOD COUNT 4.11 MIL/MM3 (4.00-5.30); RED CELL DISTRIBUTION WIDTH 13.7 % (11.6-17.2); WHITE BLOOD COUNT 7.7 TH/MM3 (4.0-11.0)
[2017-09-03 10:00] LABS: PROTHROMBIN TIME - PATIENT 10.4 SEC (9.8-11.6)
--- NOTE | 2017-09-03 11:03 | PD.RAD ---
Post CT Procedure Prog Note Pre Procedure Diagnosis: (1) Monoclonal gammopathy Post Procedure Diagnosis: (1) Monoclonal gammopathy Procedure Date: September 03, 2017 Supervising Radiologist: Ángel Nelson Estimated blood loss: 5cc Anesthesia: Conscious Sedation Plan of Activity Patient to Unit: ROPU Patient Condition: Good See PACS Report for procedural detail/treatment Biopsy Imaging Guidance: CT Side: Left Biopsy Procedure: Bone Marrow Site: left posterior iliac bone. Specimen: Core Biopsy Plan to ROPU then discharge in 2 hours if criteria met. Ángel Nelson MD September 03, 2017 11:03
[2017-09-03 11:15] VITALS: BP 141/67; PULSE 85; RESP 16; TEMP 98; O2SAT 94
--- NOTE | 2017-09-03 11:18 | RADRPT ---
EXAM DATE/TIME: 09/03/2017 10:41 [facility] COMPARISON: CT NEEDLE BIOPSY BONE MARROW, October 06, 2016, 10:07. INDICATIONS : Bone marrow biopsy, history of multiple myeloma. SEDATION TIME: 30 minutes BIOPSY SITE: Left iliac MEDICATION(S): 1.) 3 mg midazolam (Versed) IV 2.) 150 mcg fentanyl (Sublimaze) IV DEVICE(S): 1.) 11 gauge Bone marrow biopsy needle MEDICAL HISTORY : Multiple sclerosis. Cardiovascular disease. Hypertension. SURGICAL HISTORY : Appendectomy. ENCOUNTER: Initial ACUITY: 1 day PAIN SCORE: 0/10 LOCATION: Left iliac A total of one core specimen(s) were obtained and sent to the laboratory for pathologic evaluation. PROCEDURE: 1. CT guided lt iliac biopsy. 2. Conscious sedation with continuous EKG and oximetry monitoring. 3. EKG and oximetry remained stable throughout the procedure. Prior to the procedure informed consent was obtained. Any appropriate prior imaging studies were rev iewed. Using automated exposure control and adjustment of the mA and/or kV according to patient size , radiation dose was kept as low as reasonably achievable to obtain optimal diagnostic quality images . DICOM format image data is available electronically for review and comparison. The site was prepped in a sterile fashion. Full sterile technique was used, including cap, mask, [place] gloves and gown and a large sterile sheet. Hand hygiene and 2% chlorhexidine and/or betadine/al cohol prep was utilized per protocol for cutaneous antisepsis. The skin and subcutaneous tissues wer e infiltrated with local anesthetic solution. With CT guidance the previously identified target was localized. Biopsy was performed using the presc ribed needle as above. Following biopsy marrow aspiration was performed with repeat puncture. [place] te hemostasis was obtained with compression at the puncture site. Conscious sedation was performed with the prescribed dosages and duration as above in the presence of an independent trained radiology nurse to assist in the monitoring of the patient. EKG and oximetry remained stable throughout the procedure. The patient tolerated the procedure well and there were no complications. The patient was sent to Radiology Outpatient Unit in stable condition. CONCLUSION: 1. Uncomplicated CT guided bone marrow aspirate. 2. Uncomplicated CT guided bone marrow biopsy. Ángel Nelson MD on September 03, 2017 at 11:16 Board Certified Radiologist. This report was verified electronically.
[2017-09-03 11:30] VITALS: BP 109/66; PULSE 82; RESP 16; O2SAT 92
[2017-09-03 12:00] VITALS: BP 135/75; PULSE 90; RESP 18; O2SAT 92
[2017-09-03 12:30] VITALS: BP 120/48; PULSE 88; RESP 18; O2SAT 94
[2017-09-03 13:00] VITALS: BP 124/50; PULSE 88; RESP 18; O2SAT 94
== END 2017-09-03 13:15 | disposition home or self-care (01) ==
LOC: HRIP 08:56 → HRAD 08:56
PROVIDERS: ATTEND Internal Medicine
DX: D47.2 Monoclonal gammopathy (principal); C90.00 Multiple myeloma not having achieved remission; I25.10 Atherosclerotic heart disease of native coronary artery without angina pectoris; I10 Essential (primary) hypertension; G35 Multiple sclerosis; Z01.818 Encounter for other preprocedural examination
CPT/HCPCS: 38222; 77012; 85025; 85097; 85610; 85730; 88184; 88185; 88237; 88264; 88280; 88305; 88311; 88313; 88341; 88342; 99152; 99153; C1830; J1642; J2250; J3010; J7030